=== PATIENT | male | born 1975 | race Caucasian/White ===

== ENCOUNTER 2020-04-16 22:06 | Emergency (ER) | payer SELFPAY ==
[~2020-04-16] VITALS: Ht 180.3 cm; Wt 72.6 kg
--- NOTE | 2020-04-16 22:07 | NUR ---
PT TO ROOM 5. PT CARE TO PING [facility]INO
[2020-04-16 22:14] VITALS: BP 146/90
--- NOTE | 2020-04-16 22:40 | NUR ---
TELEPSYCH REQUEST INTIATED; CONNECT ID [id number]
--- NOTE | 2020-04-16 22:41 | NUR ---
45 Y/O MALE [place] [facility] [place] [employer] WAS CALLED PT WAS PEAKING INSIDE PRIVATE RESIDENCE WINDOWS AND DETAINED WHEN EMS ARRIVED ON SCENE; PT STATES RIGHT FOOT HURTS FROM WALKING; RIGHT ABD HURTS; PT EXPRESSED WANTING TO HARM HIMSELF "TOO MANY THOUGHT INSIDE HIS HEAD"; DENIES N/V/D; SKIN IS PINK/WARM/DRY; AAOX4 WITH EVEN AND STEADY GAIT;HR EVEN AND REGULAR; PT DENIES ANY FEVER, CP, SOB, OR COUGH AT THIS TIME; PATIENT STATES PAIN OF 10/10 AT THIS TIME; VSS; PATIENT POSITIONED FOR COMFORT; HOB ELEVATED; BEDRAILS UP X2; BED DOWN AND LOCKED; ROOM FREE OF HAZARDOUS MATERIALS; WILL CONTINUE TO MONITOR RX:KEPPRA/D3/THIAMINE/FOLIC ACID/B100/B12/VITABRITE/MULTIVITAMIN/NAPRIL PMH: HTN/SEIZURES/BRAIN SURGERY 5 YEARS AGO ALLERGIES: NKA
[2020-04-16 23:50] VITALS: BP 146/90
--- NOTE | 2020-04-16 23:50 | NUR ---
Patient discharged with v/s stable. Written and verbal after care instructions given and explained. Patient verbalized understanding. Ambulatory with steady gait. All questions addressed prior to discharge. Advised to follow up with PMD.
== END 2020-04-16 23:50 | disposition home or self-care (01) ==
LOC: MED 22:06
DX: R41.82 Altered mental status, unspecified (principal); I10 Essential (primary) hypertension; R56.9 Unspecified convulsions; Z86.011 Personal history of benign neoplasm of the brain
CPT/HCPCS: 99281; 99283